=== PATIENT | female | born 1970 | race Caucasian/White ===

== ENCOUNTER 2018-06-22 11:32 | Outpatient (CLI) | payer BC ==
--- NOTE | 2018-06-22 12:29 | ULT ---
RIGHT UPPER QUADRANT SONOGRAM: HISTORY: Right upper quadrant pain. FINDINGS: Mobile echogenic stones are apparent within the gallbladder lumen. No gallbladder wall thickening or pericholecystic fluid. The common duct is 0.5 cm. The liver is diffusely echogenic with areas of f atty sparing. No free fluid. IMPRESSION: 1. Cholelithiasis. No evidence of acute biliary obstruction. 2. Hepatosteatosis. POS: [facility]
== END 2018-06-22 11:33 | disposition home or self-care (01) ==
LOC: BICULT 11:32
PROVIDERS: ATTEND Surgery
DX: R10.11 Right upper quadrant pain (principal); K80.20 Calculus of gallbladder without cholecystitis without obstruction; K76.0 Fatty (change of) liver, not elsewhere classified
CPT/HCPCS: 76705

== ENCOUNTER 2018-06-29 09:48 | Day surgery (SDC) | payer BC ==
[2018-06-28 11:00] VITALS: BMI 27.8
[2018-06-29] MEDS ORDERED: CEFAZOLIN/Water 2 GM/20 ML SYRINGE ONE (10:08)
[2018-06-29 10:26] LABS: #Eosinphils 0.1 thou/uL (0.0-0.7); #Lymphocytes 1.5 thou/uL (1.20-3.40); #Monocytes 0.4 thou/uL (0.11-0.59); #Neutrophils 2.8 thou/uL (1.40-6.50); %Basophils 0.5 % (0.0-1.0); %Eosinophils 1.5 % (0.0-10.0); %Lymphocytes 31.3 % (21.0-51.0); %Monocytes 7.4 % (0.0-10.0); %Neutrophils 59.3 % (42.0-75.0); Hemoglobin 14.4 g/dL (12.0-16.0); Mean Corpuscular HGB CONC 33.5 g/dL (32.0-36.0); Mean Corpuscular Hemoglobin 29.9 pg (27.0-31.0); Mean Corpuscular Volume 89.3 fL (78.0-98.0); Mean Platelet Volume 6.5 fL (7.4-10.4); Platelet Count 243 thou/uL (130-400); RBC Distribution Width 11.8 % (11.5-14.5); Red Blood Cell (RBC) Count 4.81 mill/uL (4.20-5.40); White Blood Cell (WBC) Count 4.7 thou/uL (4.8-10.8)
[2018-06-29 10:48] LABS: ALT (SGPT) 28 U/L (8-55); AST (SGOT) 22 U/L (5-34); Albumin 4.6 g/dL (3.5-5.0); Alkaline Phosphatase 84 U/L (40-150); Anion Gap 11 mmol/L (10-20); BUN (Urea Nitrogen) 13 mg/dL (7.0-18.7); Bilirubin, Direct 0.1 mg/dL (0.1-0.3); Bilirubin, Total 0.5 mg/dL (0.2-1.2); Calc. Creatinine Clearance 120 mL/min (70-130); Calcium 10.9 mg/dL (7.8-10.44); Carbon Dioxide 27 mmol/L (22-29); Chloride 107 mmol/L (98-107); Estimated GFR-MDRD 80; Glucose 170 mg/dL (70-105); Potassium 4.3 mmol/L (3.5-5.1); Protein, Total 7.8 g/dL (6.0-8.3); Sodium 141 mmol/L (136-145)
[2018-06-29] MEDS ORDERED: Midazolam HCl 2 mg/2 ml Vial ONE (10:56)
[2018-06-29] MEDS ORDERED: Fentanyl 250 MCG/5 ML VIAL ONE (10:56)
[2018-06-29] MEDS ORDERED: Bupivacaine/Epinephrine 0.25% 30 ML VIAL ONE (12:12)
[2018-06-29] MEDS ORDERED: Promethazine HCl 25 MG/ML VIAL ONE (13:57)
[2018-06-29] MEDS ORDERED: Glycopyrrolate 0.2 MG/ML 5 ML SYRINGE ONE (14:39)
[2018-06-29] MEDS ORDERED: Lidocaine 1% PF 5 ML VIAL ONE (14:39)
[2018-06-29] MEDS ORDERED: PROPOFOL 200 MG/20 ML VIAL ONE (14:39)
[2018-06-29] MEDS ORDERED: Ketorolac Tromethamine 30 MG/ML VIAL ONE (14:39)
[2018-06-29] MEDS ORDERED: Dexamethasone 20 MG/5 ML VIAL ONE (14:39)
[2018-06-29] MEDS ORDERED: Ondansetron PF 4 MG/2 ML Vial ONE (14:39)
--- NOTE | 2018-07-02 11:03 | OP ---
DATE OF PROCEDURE: 06/29/2018 PREOPERATIVE DIAGNOSIS: Symptomatic gallstones. POSTOPERATIVE DIAGNOSIS: Symptomatic gallstones. PROCEDURE: Laparoscopic cholecystectomy robotic. SURGEON: Hany Ordaz M.D. ANESTHESIA: General. ESTIMATED BLOOD LOSS: Minimal. COMPLICATIONS: None. SPECIMEN: Gallbladder. FINDINGS: Chronic cholecystitis. PROCEDURE IN DETAIL: The patient was taken to the operating room, placed supine on the table. After general anesthetic was obtained, the abdomen was prepped and draped in a sterile fashion. Curved in cision made below the umbilicus. Cautery was used to dissect down to and score the fascia. Abdomina l cavity entered bluntly with Tasha clamp. A 12 mm trocar was placed. High-flow pneumoperitoneum wa s obtained. Left and right abdominal 8 mm robot trocars were placed as well as a right subcostal 5 m m port. All ports were docked to the robot. Surgeon goes to the console. The peritoneum of the gal lbladder was opened anteriorly and posteriorly. Critical view triangle was seen showing only the cys tic duct and cystic artery branching from medial to lateral. All ports were docked to the robot, kaitlin geon goes to the console. The peritoneum was opened anteriorly and posteriorly. The critical view t riangle was seen showing only the cystic duct and cystic artery branching from medial to lateral no o ther branching structures. Two clips were placed proximal on the cystic duct and one laterally. It was cut using the cautery. Cystic artery was taken same way. Cautery was used to dissect the gallbl adder ____ gallbladder fossa. Gallbladder was placed in an Endo catch bag and brought out through th e umbilical trocar site. All ports are undocked from the robot. The surgeon scrubs back into the [facility]. Local anesthetic is infiltrated on incisions. All ports were removed under direct visualizat ion without bleeding. Pneumoperitoneum was let down. The patient had an umbilical hernia in the are a of umbilical trocar. This was closed using interrupted PDS suture. All incisions were irrigated a nd closed using 4-0 Monocryl and Dermabond. The patient went to recovery in stable condition. All i nstrument counts, needle counts, and lap counts were correct.
== END 2018-06-29 16:03 | disposition home or self-care (01) ==
LOC: SDC 09:48
PROVIDERS: ATTEND Surgery
PROC: 0FT44ZZ Resection of Gallbladder, Percutaneous Endoscopic Approach (ICD-10-PCS; principal; 2018-06-29)
DX: K81.1 Chronic cholecystitis (principal); E11.9 Type 2 diabetes mellitus without complications; E78.00 Pure hypercholesterolemia, unspecified
CPT/HCPCS: 36415; 80048; 80076; 85025; 88304; 96374; J1100; J1885; J2001; J2250; J2405; J2550; J2704; J3010

== ENCOUNTER 2019-07-09 06:54 | Outpatient (CLI) | payer BC ==
[2019-07-09] MEDS ORDERED: Gadobenate Dimeglumine 529 MG/1 ML (20ML VIAL) ONE (09:00)
--- NOTE | 2019-07-09 09:48 | MRI ---
MRI ABDOMEN WITHOUT AND WITH CONTRAST: Date: 07/09/19 COMPARISON: 09/18/14. HISTORY: History of breast cancer. Abdominal pain. Family history of pancreatic cancer. Adrenal mass seen on p rior exam. TECHNIQUE: Multiplanar, multisequence MR images were obtained of the abdomen without and with IV contrast. FINDINGS: The patient is status post cholecystectomy. There is a stable, well-circumscribed left adrenal mass m easuring 1.7 cm in size. This demonstrates loss of signal on [id number] images consistent with a fa t-containing adrenal adenoma. There is diffuse loss of signal of the liver on [id number] images consistent with fatty infiltratio n. No focal liver lesions are seen. The kidneys, right adrenal gland, spleen, and pancreas are unrema rkable. No abnormal enhancement is seen on this examination. No abdominal adenopathy is seen. No marrow signal abnormality is present. IMPRESSION: 1. Fatty liver. 2. Left adrenal adenoma. POS: [facility]
== END 2019-07-09 06:55 | disposition home or self-care (01) ==
LOC: SCSMRI 06:54
PROVIDERS: ATTEND Internal Medicine Hematology & Oncology
DX: R10.9 Unspecified abdominal pain (principal); C50.919 Malignant neoplasm of unspecified site of unspecified female breast; Z15.01 Genetic susceptibility to malignant neoplasm of breast; Z80.0 Family history of malignant neoplasm of digestive organs; K76.0 Fatty (change of) liver, not elsewhere classified; D35.02 Benign neoplasm of left adrenal gland
CPT/HCPCS: 74183; A9577

== ENCOUNTER 2020-07-14 10:17 | Outpatient (CLI) | payer BC ==
[2020-07-14 11:13] LABS: Estimated GFR-MDRD - POC Greater than 90
--- NOTE | 2020-07-14 12:24 | MRI ---
MRI ABDOMEN WITH AND WITHOUT CONTRAST: INDICATION: Family history of pancreatic cancer with breast cancer and bilateral mastectomy; history of right upper quadrant abdominal pain. COMPARISON: Prior exam dated 07/09/2019. CONTRAST: 16 mL of MultiHance. TECHNIQUE: Multiplanar multisequence MR images were obtained of the abdomen utilizing pancreatic mass protocol. FINDINGS: The gallbladder is surgically absent. The visualized common bile duct and intrahepatic biliary ductal system appears within normal limits. No focal signal abnormality or region of abnormal enhancement is seen involving the pancreas. There is a stable small left adrenal adenoma. There is a subcentimete r cyst involving the posterior left kidney. No definite focal renal lesion is evident. The right adrenal gland is normal-appearing. No lymphadenopathy or free fluid is identified. There is a small 6 mm focus of the arterial enhancement in segment VII of the right hepatic lobe that fades to background on the delayed phase series and was likely present upon retrospective review on the compar rich exam. Small focus of T2 hyperintensity is noted in this region. This was also likely present on a CT of the abdomen and pelvis with and without contrast dated August 12, 2013 from [facility] and is likely reflective of a very small capillary hemangioma. No definite abnormal marrow signal intensity is evident. IMPRESSION: 1. No focal pancreatic lesion identified. 2. Stable left adrenal adenoma and left renal cyst. 3. Stable small capillary hemangioma within the right hepatic dome. Transcribed Date/Time: 07/14/2020 12:45 PM
== END 2020-07-14 10:18 | disposition home or self-care (01) ==
LOC: SCSMRI 10:17
PROVIDERS: ATTEND Internal Medicine Hematology & Oncology
DX: Z15.01 Genetic susceptibility to malignant neoplasm of breast (principal); N28.1 Cyst of kidney, acquired; D35.02 Benign neoplasm of left adrenal gland; D18.09 Hemangioma of other sites; Z85.3 Personal history of malignant neoplasm of breast; Z80.0 Family history of malignant neoplasm of digestive organs
CPT/HCPCS: 74183; 82565

== ENCOUNTER 2021-01-06 09:49 | Outpatient (CLI) | payer BC | END 2021-01-06 09:50 | disposition home or self-care (01) | LOC: BICRAD 09:49 | PROVIDERS: ATTEND Family Medicine | DX: E83.52 Hypercalcemia (principal) | CPT/HCPCS: 71046 ==

== ENCOUNTER 2021-07-22 07:07 | Outpatient (CLI) | payer OTHER | END 2021-07-22 07:08 | disposition home or self-care (01) | LOC: BICMRI 07:07 | PROVIDERS: ATTEND Internal Medicine Hematology & Oncology | DX: Z15.01 Genetic susceptibility to malignant neoplasm of breast (principal); Z85.3 Personal history of malignant neoplasm of breast; Z80.0 Family history of malignant neoplasm of digestive organs | CPT/HCPCS: 74183 ==

== ENCOUNTER 2022-08-01 08:28 | Outpatient (CLI) | payer BC ==
[2022-08-01] MEDS ORDERED: Magnevist 469MG/ML 20 ML VIAL ONE (09:31)
== END 2022-08-01 08:29 | disposition home or self-care (01) ==
LOC: MRI 08:28
PROVIDERS: ATTEND Internal Medicine Hematology & Oncology
DX: C50.919 Malignant neoplasm of unspecified site of unspecified female breast (principal); Z15.01 Genetic susceptibility to malignant neoplasm of breast; Z80.0 Family history of malignant neoplasm of digestive organs; K76.0 Fatty (change of) liver, not elsewhere classified; D18.03 Hemangioma of intra-abdominal structures; D35.02 Benign neoplasm of left adrenal gland; N28.1 Cyst of kidney, acquired
CPT/HCPCS: 74183; A9579

== ENCOUNTER 2022-08-01 10:12 | Outpatient (CLI) | payer BC | END 2022-08-01 10:13 | disposition home or self-care (01) | LOC: RAD 10:12 | PROVIDERS: ATTEND Internal Medicine Hematology & Oncology | DX: R07.81 Pleurodynia (principal) | CPT/HCPCS: 71046 ==

== ENCOUNTER 2023-07-25 13:43 | Outpatient (CLI) | payer BC | END 2023-07-25 13:44 | disposition home or self-care (01) | LOC: SCSRAD 13:43 | PROVIDERS: ATTEND Family Medicine | DX: M79.604 Pain in right leg (principal) ==

== ENCOUNTER 2023-08-10 12:30 | Outpatient (CLI) | payer BC | END 2023-08-10 12:31 | disposition home or self-care (01) | LOC: MRI 12:30 | PROVIDERS: ATTEND Internal Medicine Hematology & Oncology | DX: Z15.01 Genetic susceptibility to malignant neoplasm of breast (principal); C50.919 Malignant neoplasm of unspecified site of unspecified female breast; N28.1 Cyst of kidney, acquired; D35.02 Benign neoplasm of left adrenal gland; Z80.0 Family history of malignant neoplasm of digestive organs | CPT/HCPCS: 74183 ==

== ENCOUNTER 2024-08-14 08:51 | Outpatient (CLI) | payer BC | END 2024-08-14 08:52 | disposition home or self-care (01) | LOC: SCSMRI 08:51 | PROVIDERS: ATTEND Internal Medicine Hematology & Oncology | DX: Z15.01 Genetic susceptibility to malignant neoplasm of breast (principal); Z85.3 Personal history of malignant neoplasm of breast; Z80.0 Family history of malignant neoplasm of digestive organs; N28.1 Cyst of kidney, acquired; D35.02 Benign neoplasm of left adrenal gland | CPT/HCPCS: 74183; 76376 ==